=== PATIENT | female | born 1960 | race Caucasian/White ===

== ENCOUNTER 2017-07-04 21:06 | Emergency (ER) | payer MEDICAID ==
[2017-07-04 22:42] VITALS: BP 158/77
== END 2017-07-04 22:42 | disposition home or self-care (01) ==
LOC: ED 21:06
DX: M75.92 Shoulder lesion, unspecified, left shoulder (principal); E78.00 Pure hypercholesterolemia, unspecified; Z79.82 Long term (current) use of aspirin; Z79.1 Long term (current) use of non-steroidal anti-inflammatories (NSAID)

== ENCOUNTER 2017-09-28 23:39 | Emergency (ER) | payer MEDICAID ==
[~2017-09-28] VITALS: Ht 157.5 cm; Wt 87.5 kg
[2017-09-28 23:52] VITALS: Ht 157.5 cm; Wt 87.5 kg
[2017-09-29 01:35] LABS: BASOPHIL % 0.9 % (0-2); PLATELET COUNT 311 x10^3mcL (130-400); RED CELL DISTRIBUTION WIDTH 12.9 % (11.5-14.5)
[2017-09-29 01:47] LABS: CALCIUM 8.9 mg/dL (8.5-10.1); CARBON DIOXIDE 30.4 mmol/L (21-32); CHLORIDE SERUM 103 mmol/L (98-107); CREATININE SERUM 0.7 mg/dL (0.6-1.0); GFR1 > 60 mL/min; GLUCOSE SERUM 121 mg/dL (74-106); POTASSIUM SERUM 3.6 mmol/L (3.5-5.1); SODIUM SERUM 139 mmol/L (136-145)
[2017-09-29 02:00] LABS: ALKALINE PHOSPHATASE 87 U/L (46-116); ALT/SGPT 20 U/L (14-59); AST/SGOT 14 U/L (15-37); BILIRUBIN TOTAL 0.17 mg/dL (0.20-1.00); FREE T4 1.04 ng/dL (0.76-1.46); LIPASE 219 IU/L (73-393); TOTAL PROTEIN, SERUM 7.8 g/dL (6.4-8.2)
[2017-09-29 02:02] LABS: ALBUMIN 3.2 g/dL (3.4-5.0)
[2017-09-29 03:17] VITALS: BP 123/75
[2017-09-29 03:32] LABS: UA SPECIFIC GRAVITY 1.015 (1.005-1.035); microscopic required? YES; urine erythrocyte 2+ (NEGATIVE)
== END 2017-09-29 03:17 | disposition home or self-care (01) ==
LOC: ED 23:39
PROVIDERS: Emergency Medicine
DX: K80.20 Calculus of gallbladder without cholecystitis without obstruction (principal); E78.00 Pure hypercholesterolemia, unspecified; E03.9 Hypothyroidism, unspecified
CPT/HCPCS: 84439; J1170; J2405; J7030; Q0092

== ENCOUNTER 2018-09-08 11:50 | Emergency (ER) | payer MEDICAID ==
[~2018-09-08] VITALS: Ht 160 cm; Wt 82.6 kg
[2018-09-08 12:00] VITALS: Ht 160 cm; Wt 82.6 kg
[2018-09-08 15:06] LABS: BASOPHIL % 0.4 % (0-2); PLATELET COUNT 314 x10^3mcL (130-400)
[2018-09-08 15:13] LABS: RED CELL DISTRIBUTION WIDTH 14.7 % (11.5-14.5)
[2018-09-08 15:14] LABS: CALCIUM 8.9 mg/dL (8.5-10.1); CARBON DIOXIDE 26.5 mmol/L (21-32); CHLORIDE SERUM 103 mmol/L (98-107); CREATININE SERUM 0.7 mg/dL (0.6-1.0); GFR1 > 60 mL/min; GLUCOSE SERUM 94 mg/dL (74-106); POTASSIUM SERUM 3.8 mmol/L (3.5-5.1); SODIUM SERUM 138 mmol/L (136-145)
[2018-09-08 16:26] VITALS: BP 143/67
== END 2018-09-08 16:26 | disposition home or self-care (01) ==
LOC: ED 11:50
PROVIDERS: Emergency Medicine
DX: R51 Headache (principal); R42 Dizziness and giddiness; R11.0 Nausea; I10 Essential (primary) hypertension; F41.9 Anxiety disorder, unspecified; E78.00 Pure hypercholesterolemia, unspecified
CPT/HCPCS: 36415; J0780

== ENCOUNTER 2018-11-28 21:01 | Inpatient (IN) | payer MEDICAID ==
[~2018-11-28] VITALS: Ht 157.5 cm; Wt 83.9 kg
[2018-11-28 21:57] VITALS: Ht 157.5 cm; Wt 83.9 kg
--- NOTE | 2018-11-28 22:00 | NUR ---
EKG IN PROGRESS.
--- NOTE | 2018-11-28 22:04 | NUR ---
PT SENT TO LOBBY POST BEING CLEARED BY . AWAITING AVAILABLE BED.
--- NOTE | 2018-11-28 22:35 | NUR ---
PT AMBULATED TO ROOM 4. C/O PAIN TO RIGHT LOWER ABDOMEN.
[2018-11-28 23:34] LABS: BASOPHIL % 0.2 % (0-2); PLATELET COUNT 293 x10^3mcL (130-400); RED CELL DISTRIBUTION WIDTH 14.4 % (11.5-14.5)
[2018-11-28 23:44] LABS: CALCIUM 8.8 mg/dL (8.5-10.1); CARBON DIOXIDE 30.3 mmol/L (21-32); CHLORIDE SERUM 103 mmol/L (98-107); GFR1 > 60 mL/min; GLUCOSE SERUM 107 mg/dL (74-106); POTASSIUM SERUM 3.6 mmol/L (3.5-5.1); SODIUM SERUM 141 mmol/L (136-145)
[2018-11-28 23:57] LABS: ALBUMIN 3.5 g/dL (3.4-5.0); ALKALINE PHOSPHATASE 90 U/L (46-116); ALT/SGPT 21 U/L (14-59); AST/SGOT 17 U/L (15-37); BILIRUBIN TOTAL 0.1 mg/dL (0.20-1.00); LIPASE 216 IU/L (73-393); TOTAL PROTEIN, SERUM 8.2 g/dL (6.4-8.2)
[2018-11-29 00:56] LABS: UA SPECIFIC GRAVITY >=1.030 (1.005-1.035); microscopic required? YES; urine erythrocyte 2+ (NEGATIVE)
[2018-11-29] MEDS ORDERED: MECLIZINE HYD12.5 MG PO (01:47)
[2018-11-29] MEDS ORDERED: SYNTHROID0.088 MG PO (01:48)
[2018-11-29] MEDS ORDERED: ASPIR 8181 MG PO (01:48)
--- NOTE | 2018-11-29 01:55 | NUR ---
REPORT TO TODD MCCONNELL.
--- NOTE | 2018-11-29 02:00 | NUR ---
PT TRANSFERRED FROM ER VIA [facility] ACCOMPANIED BY RN AND EMT. PT IS A/O X4, SPEECH CLEAR AND APPROPRIATE. PERRLA NOTED. PT WITH C/O 8/10 EPIGASTRIC PAIN. FOOD DEMONSTRATOR IN PLACE, TELE MONITOR #[address] NO SOB NOTED, RESPS E/U ON ROOM AIR. LUNG SOUNDS CTA. CHEST RISE EQUAL AND SYMMETRICAL. ABD ROUNDED, SOFT, NON-DISTENDED. C/O MID TO RIGHT SIDED ABD PAIN UPON PALPATION. BOWEL SOUNDS HYPOACTIVE. DENIES ANY N/V/D. SKIN WARM DRY TO TOUCH. IV TO LFA G 22 INTACT AND PATENT. NS INFUSING @ 100ML/HR. PT VOIDS FREELY WITH BRP. AMBULATORY WITH STEADY GAIT. INSTRUCTED TO CALL FOR ASSISTANCE. CALL LIGHT WITHIN REACH. WILL CONTINUE TO MONITOR.
[2018-11-29 02:34] LABS: MAGNESIUM 2.3 mg/dL (1.8-2.4); PHOSPHOROUS 3.5 mg/dL (2.5-4.9)
[2018-11-29 02:38] LABS: AMPHETAMINE QUAL UR NONE DETECTED (See below)
--- NOTE | 2018-11-29 02:39 | NUR ---
PT WITH C/O HEARTBURN REQUESTING MEDICATION. DR NAJERA CALLED AND MADE AWARE, ORDER GIVEN FOR MYLANTA PRN.
[2018-11-29 02:44] LABS: CHOLESTEROL/HDL RATIO 4.5; FREE T4 1.07 ng/dL (0.76-1.46); FREE THYROXINE INDEX 2.8 ug/dL (1.4-4.5); T4(THYROXINE) 8.1 ug/dL (4.7-13.3)
[2018-11-29 02:54] LABS: T3 TOTAL 1.19 ng/mL
--- NOTE | 2018-11-29 03:23 | NUR ---
PT MEDICATED WITH MORPHINE IVP AND MYLANTA FOR C/O 8/10 EPIGASTRIC PAIN AND HEARTBURN. WILL REASSESS PER PROTOCOL.
--- NOTE | 2018-11-29 03:51 | NUR ---
PT VOMIT X1, SMALL AMT IN TRASH CAN. PT STATES FEELING RELIEF. DENIES ANY NAUSEA AT THIS TIME. EMESIS BAG PROVIDED. INSTRUCTED TO CALL FOR ANY FURTHER NAUSEA SYMPTOMS.
[2018-11-29 05:51] VITALS: BP 149/76
[2018-11-29 06:54] LABS: BASOPHIL % 0.2 % (0-2); PLATELET COUNT 277 x10^3mcL (130-400); RED CELL DISTRIBUTION WIDTH 13.9 % (11.5-14.5)
[2018-11-29 07:06] LABS: CALCIUM 8.3 mg/dL (8.5-10.1); CARBON DIOXIDE 25.7 mmol/L (21-32); CHLORIDE SERUM 104 mmol/L (98-107); CREATININE SERUM 0.7 mg/dL (0.6-1.0); GFR1 > 60 mL/min; GLUCOSE SERUM 126 mg/dL (74-106); SODIUM SERUM 139 mmol/L (136-145)
--- NOTE | 2018-11-29 07:40 | NUR ---
RECEIVED PT IN BED. ASSESSED AND DOCUMENTED. DENIES PAIN THIS TIME. SAFTEY PRECAUTIONS ARE IN PLACE. WILL MONITOR.
[2018-11-29 09:48] VITALS: BP 151/79
[2018-11-29 12:53] VITALS: BP 159/80
--- NOTE | 2018-11-29 13:29 | NUR ---
INFORMED ABOUT PT BP 159/80, HE ORDERED LISINOPRIL PO 10MG AND GIVEN. WILL RECHECK THE BP.
--- NOTE | 2018-11-29 15:00 | NUR ---
RECHECKED PT BP 148/80. STABLE.
[2018-11-29 15:52] VITALS: BP 149/78
--- NOTE | 2018-11-29 19:20 | NUR ---
PT RESTING IN BED COMFORTABLY. DENIES PAIN THIS TIME. GAVE REPORT TO SENIOR CAREGIVER NURSE.
--- NOTE | 2018-11-29 19:30 | NUR ---
PT RESTING IN BED, FAMILY AT BEDSIDE. AOX4, DENIES ORTIZ/DIZZINESS. TELE #37, ST DENIES CP. PULSES PALPABLE BILAT, DENIES NUMBNESS/TINGLING IN FEET. RESP EVEN AND UNLABORED ON RA, DENIES SOB. ABD SOFT, ROUND, REPORTS PAIN W/ PALPATION ONLY TO RUQ. PT ABLE TO EAT SMALL PORTION OF DINNER (FRUIT CUP AND BREAD) AND PT UNDERSTANDS SHE WILL BE NPO AFTER MIDNIGHT FOR LAP JESICA TOMORROW 11/30/18 @0930. WILL OBTAIN CONSENT. DENIES N/V/D AT THIS TIME. PT AMB DENIES DIZZINESS UPON STANDING. SKIN INTACT. IV SITE TO LFA NS @100ML/HR. NO REDNESS, SWELLING OR PAIN NOTED. ALL COMFORT AND SAFETY MEASURES PROVIDED FOR, CALL LIGHT WITHIN REACH, BED IN LOWEST POSITION, WILL CONTINUE TO MONITOR.
[2018-11-29 20:35] VITALS: BP 128/70
--- NOTE | 2018-11-30 05:10 | NUR ---
PT RESTED IN INTERVALS DURING SHIFT, NO ACUTE CHANGES OCCURRING OVERNIGHT. PT DENIES ABD PAIN DURING SHIFT, DENIES N/V/D. PT SIGNED CONSENT FOR LAP JESICA W/ POSS OPEN. IV SITE REMAINS PATENT TO LFA, NS @ 100ML/HR. NO REDNESS, SWELLING OR PAIN NOTED. PT HAS BEEN NPO SINCE MIDNIGHT, ALL COMFORT AND SAFETY MEASURES PROVIDED FOR, CALL LIGHT WITHIN REACH, BED IN LOWEST POSITION, WILL CONTINUE TO MONITOR.
[2018-11-30 05:24] VITALS: BP 109/65
--- NOTE | 2018-11-30 06:30 | NUR ---
PROVIDED PT WIPES TO PERFORM SELF SUNDEEP WIPE DOWN. PT TOLERATED WELL. DENIES PAIN AT THIS TIME. WILL ENDORSED CHECKLIST.
[2018-11-30 07:08] LABS: BASOPHIL % 0.3 % (0-2); PLATELET COUNT 291 x10^3mcL (130-400); RED CELL DISTRIBUTION WIDTH 14.3 % (11.5-14.5)
--- NOTE | 2018-11-30 07:30 | NUR ---
RECEIVED PATIENT SITTING UP IN BED A/O X4, CLEAR SPEECH, NO NEURO DEFICITS NOTED. TELE # [address], DENIES CHEST PAIN. BREATHING EVEN UNLABBORED ON RA, DENIES SOB, NO DISTRESS NOTED. DENIES ANY PAIN. NPO STATUS MAINTAINED FOR PROCEDURE THIS AM. IV TO LFA INTACT AND PATENT FLUSHED WELL WITH 10 ML NS. PATIENT IS CALM WITH CARE. INSTRUCTED TO CALL FOR ASSISTANCE IF NEEDED. SAFETY PRECAUTIONS IN PLACE. WILL MONITOR.
--- NOTE | 2018-11-30 07:32 | NUR ---
ALL CARE ENDORSED TO DAYSHIFT NURSE, NO ACUTE DISTRESS NOTED. ALL QUESTIONS AND CONCERNS ADDRESSED, CALL LIGHT WITHIN REACH, BED IN LOWEST POSITION.
[2018-11-30 07:38] LABS: CALCIUM 8.9 mg/dL (8.5-10.1); CARBON DIOXIDE 27.4 mmol/L (21-32); CHLORIDE SERUM 105 mmol/L (98-107); CREATININE SERUM 0.7 mg/dL (0.6-1.0); GFR1 > 60 mL/min; GLUCOSE SERUM 104 mg/dL (74-106); MAGNESIUM 2.3 mg/dL (1.8-2.4); PHOSPHOROUS 3.4 mg/dL (2.5-4.9); POTASSIUM SERUM 3.6 mmol/L (3.5-5.1); SODIUM SERUM 137 mmol/L (136-145)
[2018-11-30 09:00] VITALS: BP 127/70
--- NOTE | 2018-11-30 09:16 | NUR ---
PATIENT TAKEN DOWN TO OR VIA HOSPITAL BED, JUNIOR HIGH SCHOOL TEACHER MADE AWARE.
[2018-11-30 12:09] VITALS: BP 95/57
--- NOTE | 2018-11-30 12:09 | NUR ---
RECEIVED PATIENT BACK FROM OR S/P LAP JESICA, FIRST SAMPLER MADE AWARE. PATIENT A/O X4, CLEAR SPEECH, ABLE TO MAKE NEEDS KNOWN AND FOLLOW COMMANDS, ABLE TO TRANSFER SELF FROM GURNEY TO BED. PATIENT PLACED ON O2 4 L/MIN VIA NC, BREATHING EVEN UNLABBORED. PATIENT HAS X5 INCISION TO ABD, X4 CLOSED WITH SUTURES AND DERMABOND, X1 CLOSED WITH SYED AND DERMABOND, CDI VANESA. PATIENT DENIES ANY PAIN. PATIENT MADE COMFORTABLE, ALL NEEDS ATTENDED TO, SAFETY PRECAUTIONS IN PLACE. FAMILY AT BEDSIDE. VS: 95/57, MAP 71, HR 83, TEMP 98.3, O2 SAT 97%.
[2018-11-30 13:19] VITALS: BP 92/47
--- NOTE | 2018-11-30 14:56 | NUR ---
PATIENT SEEN RESTING IN BED COMFORTABLY WITH EYES CLOSED, BREATHING EVEN UNLABBORED ON O2 2 L/MIN VIA NC, BREAHTING EVEN UNLABBORED, NO DISTRESS NOTED. SAFETY PRECAUTIONS IN PLACE. WILL MONITOR.
[2018-11-30 17:29] VITALS: BP 125/59
--- NOTE | 2018-11-30 17:40 | NUR ---
PATIENT SITTING UP IN BED EATING DINNER, TOLERATING WELL NO DISTRESS NOTED. FAMILY AT BEDSIDE. IV TO LFA INTACT INFUSING IVF WELL FREE FROM REDNESS AND INFILTRATION. INCISION X5 TO ABD CDI. PATIENT STATES SHE IS BURPING, BUT DENIES PASSING GAS, NO BM YET. ALL NEEDS ATTENDED TO DURING SHIFT. SAFETY PRECAUTIONS IN PLACE. WILL ENDORSE CARE TO ONCOMING NURSE.
--- NOTE | 2018-11-30 18:29 | NUR ---
P.T. NOTES P.T. EVAL COMPLETED; NURSING TO AMB AD SAH; REFER TO EVAL FOR DETAILS.
--- NOTE | 2018-11-30 19:30 | NUR ---
PT RESTING IN BED, FAMILY AT BEDSIDE. PT S/P LAP JESICA (11/30/18) WITH 5 ABD LAP INCISIONS (CLOSED WITH SUTURES AND DERMABOND X4, CLOSED WITH STAPLE AND DERMABOND X1. INCISIONS APPEAR WELL APPROXIMATED, NO DRAIANGE NOTED. HYPOACTIVE SOUND SOUNDS, PT REPORT BURPING BUT NOT YET PASSING GAS. PT HAS NO BM YET. PT HAS BEEN UP WITH PT SINCE SX, TOLERATING WELL. ENCOURAGED PT TO AMBULATE MORE DURING SHIFT/ PT VERBALIZES UNDERSTANDING. TELE #37, ST 105, DENIES CP. RESP EVEN AND UNLABORED ON 2LNC, DENIES SOB. IV SITE TO LFA D5 1/2 NS AT 80ML/HR. NO REDNESS, SWELLING OR PAIN NOTED. ALL COMFORT AND SAFETY MEASURES PROVIDED FOR, CALL LIGHT WITHIN REACH,BED IN LOWEST POSITION, WILL CONTINUE TO MONITOR.
[2018-11-30 20:37] VITALS: BP 136/62
--- NOTE | 2018-12-01 05:05 | NUR ---
PT RESTED IN INTERVALS DURING SHIFT, NO ACUTE CHNAGES OCCURRING OVERNIGHT. PT DENIES N/V/D DURING SHIFT. PT REPORTS PASSING GAS YET NO BM YET. ENCOURAGED AMBULATION DURING SHIFT, YET PT REPORTS SHE WANTS TO WALK DURING THE DAYTIME AND GET REST AT NIGHT. EDUCATED PT IN REGARDS TO BENEFITS OF EARLY AMBULATION. PT HAS INCENTIVE SPIROMETER AT BEDSIDE. ABD INCISIONS REMAINS FREE OF DRAINAGE, AND ARE WELL APPROXIMATED. PT MEDICATED X1 WITH NORCO FOR ABD PAIN AND PT RESTED WELL AFTER ADMINISTERED. NEW IV INSERTED TO LFA 20G, D5 1/2 NS @ 80ML/HR, NO REDNESS, SWELLING OR PAIN NOTED. ALL COMFORT AND SAFETY MEASURES PROVIDED FOR, CALL LIGHT WITHIN REACH, BED IN LOWEST POSITION, WILL CONTINUE TO MONITOR.
[2018-12-01 05:18] VITALS: BP 98/56
[2018-12-01 06:16] LABS: BASOPHIL % 0.1 % (0-2); PLATELET COUNT 249 x10^3mcL (130-400); RED CELL DISTRIBUTION WIDTH 14.3 % (11.5-14.5)
[2018-12-01 06:38] LABS: CALCIUM 8.5 mg/dL (8.5-10.1); CARBON DIOXIDE 29.5 mmol/L (21-32); CHLORIDE SERUM 104 mmol/L (98-107); CREATININE SERUM 0.8 mg/dL (0.6-1.0); GFR1 > 60 mL/min; GLUCOSE SERUM 122 mg/dL (74-106); POTASSIUM SERUM 3.9 mmol/L (3.5-5.1); SODIUM SERUM 139 mmol/L (136-145)
--- NOTE | 2018-12-01 06:52 | NUR ---
UPON ASSESSMENT ON PT, PT REPORTS PAIN UNDER CONTROL AT THIS TIME. PT REPORTS AMBULATING TO RESTROOM TO URINATE. REPORTS NO PAIN WHEN GETTING UP. ATTEMPTED TO GET PT OFF 2LNC, PT O2 SAT ON RA= 90-93%. RR= 22. RETURNED PT BACK TO [facility] AND ASKED PT TO DEMONSTRATE THE USE OF THE INCENTIVE SPIROMETER. PT ABLE TO REACH 1000ML, WILL ENCOURAGE IT'S USE 10X HOUR WHILE AWAKE TO PROMOTE GAS EXCHANGE AND FULLY LUNG EXPANSION. PT VERBALIZES UNDERSTANDING, ALL COMFORT AND SAFETY MEASURES PROVIDED FOR, CALL LIGHT WITHIN REACH, BED IN LOWEST POSITION, WILL CONTINUE TO MONITOR.
[2018-12-01 07:41] VITALS: BP 114/54
--- NOTE | 2018-12-01 07:42 | NUR ---
REPORT RECEIVED TODD GARCIA. PATIENT IN BED RESTING, BED IS TO THE LOWEST POSITION. PATIENT IS ALERT AND ORIENTED, ABLE TO FOLLOW COMMANDS, AND PLEASANT. PATIENT IS CURRENTLY EATING AND NO TROUBLE SWALLOWING. PATIENT IS BREATHING ADEQUATELY WITH NO SIGNS OF DISTRESS. PATIENTS ABDOMEN INCISION IS DRY AND INTACT AND NO SIGNS OF DRAINAGE.IT IS CLOSED WITH SUTURES AND DERMABAND AND CLOSED. WILL CONTINUE TO MONITOR.
[2018-12-01] MEDS ORDERED: KEFLEX500 M1 PO (09:57)
[2018-12-01 10:18] VITALS: BP 114/54
--- NOTE | 2018-12-01 10:39 | NUR ---
DISCHARGE INSTRUCTIONS PROVIDED TO PATIENT AT THIS TIME. ALL BELONGINGS RETURNED TO PATIENT, GLASSES, DENTURES, EARRINGS, PHONE, EXCELSIOR MACHINE OPERATOR ETC. DAUGHTER AT BEDSIDE AND WILL BE TAKING PATIENT HOME. IV DC'D AT THIS TIME CATH INTACT, DRESSING IN PLACE. WILL WHEEL PATIENT OUT TO CAR.
--- NOTE | 2018-12-01 10:57 | NUR ---
TELE RETURNED TO SPA RECEPTIONIST AT THIS TIME. PT WHEELED OFF UNIT WITH PRECINCT I POLICE SERGEANT AND DAUGHTER. NO INCIDENT OCCURED.
== END 2018-12-01 11:01 | disposition home or self-care (01) | DRG 263 ==
LOC: ED 21:01 → DU 11-29 01:36
PROVIDERS: Emergency Medicine; Surgery; ADMIT Internal Medicine
PROC: 0FT44ZZ Resection of Gallbladder, Percutaneous Endoscopic Approach (ICD-10-PCS; principal; 2018-11-30 09:30)
DX: K80.00 Calculus of gallbladder with acute cholecystitis without obstruction (principal); E03.9 Hypothyroidism, unspecified; E78.5 Hyperlipidemia, unspecified; R31.9 Hematuria, unspecified; Z68.33 Body mass index [BMI] 33.0-33.9, adult; Z87.891 Personal history of nicotine dependence; Z79.82 Long term (current) use of aspirin
CPT/HCPCS: 84439; C9113; J0690; J1170; J1885; J2270; J2405; J3010; J3490; J7030; Q0092

== ENCOUNTER 2018-12-19 13:35 | Emergency (ER) | payer MEDICAID ==
[~2018-12-19] VITALS: Ht 157.5 cm; Wt 82.2 kg
[~2018-12-19 13:35] MED LIST: ASPIR 8181 MG PO; KEFLEX500 M1 PO; MECLIZINE HYD12.5 MG PO; SYNTHROID0.088 MG PO
[2018-12-19 13:59] VITALS: Ht 157.5 cm; Wt 82.2 kg
[2018-12-19 16:33] VITALS: BP 143/73
== END 2018-12-19 16:33 | disposition home or self-care (01) ==
LOC: ED 13:35
DX: M26.602 Left temporomandibular joint disorder, unspecified (principal); E03.9 Hypothyroidism, unspecified; E78.00 Pure hypercholesterolemia, unspecified; F41.9 Anxiety disorder, unspecified; Z90.49 Acquired absence of other specified parts of digestive tract
CPT/HCPCS: J1100; J1885

== ENCOUNTER 2019-08-04 12:00 | Inpatient (IN) | payer MEDICAID ==
[~2019-08-04] VITALS: Ht 157.5 cm; Wt 75.7 kg
[2019-08-04 12:08] VITALS: Ht 157.5 cm; Wt 75.7 kg
[2019-08-04 13:13] LABS: BASOPHIL % 0.3 % (0-2); PLATELET COUNT 265 x10^3mcL (130-400)
[2019-08-04 13:25] LABS: CALCIUM 8.4 mg/dL (8.5-10.1); CARBON DIOXIDE 27.5 mmol/L (21-32); CHLORIDE SERUM 104 mmol/L (98-107); CREATININE SERUM 0.5 mg/dL (0.6-1.0); GFR1 > 60 mL/min; GLUCOSE SERUM 97 mg/dL (74-106); POTASSIUM SERUM 3.4 mmol/L (3.5-5.1); SODIUM SERUM 140 mmol/L (136-145)
[2019-08-04 13:29] LABS: ALBUMIN 3.5 g/dL (3.4-5.0); ALKALINE PHOSPHATASE 89 U/L (46-116); ALT/SGPT 19 U/L (14-59); AST/SGOT 25 U/L (15-37); BILIRUBIN TOTAL 0.39 mg/dL (0.20-1.00)
[2019-08-04] MEDS ORDERED: NOR10 PO (14:32)
[2019-08-04] MEDS ORDERED: SIMVASTATIN10 M1 PO (14:32)
[2019-08-04 15:23] LABS: T3 TOTAL 1.18 ng/mL
[2019-08-04 15:26] LABS: CHOLESTEROL/HDL RATIO 3.1
[2019-08-04 15:32] VITALS: BP 141/84
[2019-08-04 16:16] LABS: FREE T4 1.17 ng/dL (0.76-1.46)
[2019-08-04 16:17] LABS: FREE THYROXINE INDEX 3.7 ug/dL (1.4-4.5)
[2019-08-04 20:55] VITALS: BP 107/63
[2019-08-05 04:59] VITALS: BP 111/61
[2019-08-05 06:16] LABS: CALCIUM 8.5 mg/dL (8.5-10.1); CARBON DIOXIDE 27.8 mmol/L (21-32); CHLORIDE SERUM 106 mmol/L (98-107); CREATININE SERUM 0.6 mg/dL (0.6-1.0); GFR1 > 60 mL/min; GLUCOSE SERUM 91 mg/dL (74-106); MAGNESIUM 2.1 mg/dL (1.8-2.4); PHOSPHOROUS 3.5 mg/dL (2.5-4.9); POTASSIUM SERUM 4.4 mmol/L (3.5-5.1); SODIUM SERUM 141 mmol/L (136-145)
[2019-08-05 06:18] LABS: BASOPHIL % 0.5 % (0-2); PLATELET COUNT 260 x10^3mcL (130-400)
[2019-08-05 06:54] LABS: RED CELL DISTRIBUTION WIDTH 14.8 % (11.5-14.5)
[2019-08-05 08:08] VITALS: BP 95/55
[2019-08-05 08:41] VITALS: BP 138/76
[2019-08-05 11:49] VITALS: BP 104/56
== END 2019-08-05 16:08 | disposition home or self-care (01) | DRG 203 ==
LOC: ED 12:00 → DU 14:38
PROVIDERS: Emergency Medicine; ADMIT General Practice
DX: R07.89 Other chest pain (principal); E03.9 Hypothyroidism, unspecified; E78.5 Hyperlipidemia, unspecified; I10 Essential (primary) hypertension
CPT/HCPCS: 83880; 84439; G0378; J7030; Q0092

== ENCOUNTER 2020-03-08 18:19 | Emergency (ER) | payer MEDICAID ==
[~2020-03-08] VITALS: Ht 157.5 cm; Wt 77.6 kg
[~2020-03-08 18:19] MED LIST changes: +NOR10 PO; +SIMVASTATIN10 M1 PO
[2020-03-08 18:48] VITALS: Ht 157.5 cm; Wt 77.6 kg
[2020-03-08 20:16] LABS: BASOPHIL % 0.5 % (0-2); PLATELET COUNT 274 x10^3mcL (130-400); RED CELL DISTRIBUTION WIDTH 13.9 % (11.5-14.5)
[2020-03-08 20:20] LABS: CALCIUM 9.1 mg/dL (8.5-10.1); CARBON DIOXIDE 28.2 mmol/L (21-32); CHLORIDE SERUM 104 mmol/L (98-107); CREATININE SERUM 0.9 mg/dL (0.6-1.0); GFR1 > 60 mL/min; GLUCOSE SERUM 113 mg/dL (74-106); POTASSIUM SERUM 4.2 mmol/L (3.5-5.1); SODIUM SERUM 143 mmol/L (136-145)
[2020-03-08 20:25] LABS: ALBUMIN 3.9 g/dL (3.4-5.0); ALKALINE PHOSPHATASE 92 U/L (46-116); ALT/SGPT 22 U/L (14-59); AST/SGOT 17 U/L (15-37); BILIRUBIN TOTAL 0.4 mg/dL (0.20-1.00)
[2020-03-08 20:29] LABS: TOTAL PROTEIN, SERUM 8.3 g/dL (6.4-8.2)
[2020-03-08 23:39] VITALS: BP 149/80
== END 2020-03-08 23:39 | disposition home or self-care (01) ==
LOC: ED 18:19
DX: M54.6 Pain in thoracic spine (principal); R07.89 Other chest pain; I10 Essential (primary) hypertension; E78.00 Pure hypercholesterolemia, unspecified
CPT/HCPCS: J7030; Q0092; Q9967